=== PATIENT | male | born 1980 | race Caucasian/White ===

== ENCOUNTER 2017-10-20 13:38 | Emergency (ER) | payer SELFPAY ==
[2017-10-20 13:58] VITALS: BP 126/76
--- NOTE | 2017-10-20 14:26 | EDPHY ---
H & P Stated Complaint: ~0930 dropped wt 50lbs on foot right Time Seen by Provider: 10/20/17 13:55 HPI/ROS: Chief Complaint: Foot injury HPI: 37-year-old male was at work today when he dropped a box containing 50 lb weights onto his right foot. This happened about 4 hr ago. He has been walking since injury. Is complaining some pain on the top of his foot. No other injuries. ROS: 10 point Review of Systems is negative except as noted in the HPI. PMH: Denies Social History: No smoking, no alcohol, no recreational drug use Family History: non-contributory Physical Exam: General: Awake, alert, no acute distress Right foot: Patient has some tenderness on the dorsum of his midfoot. No bony deformity. No plantar tenderness. Sensations intact in all dermatomes. Capillary refills less than 3 sec. He has 2+ dorsalis pedis pulses. Ankle: Nontender, full range of motion without pain. Skin: No rash - Personal History Current Tetanus Diphtheria and Acellular Pertussis (TDAP): Yes - Medical/Surgical History Hx Asthma: No Hx Chronic Respiratory Disease: No Hx Diabetes: No Hx Cardiac Disease: No Hx Renal Disease: No Hx Cirrhosis: No Hx Alcoholism: No Hx HIV/AIDS: No Hx Splenectomy or Spleen Trauma: No Other PMH: denies - Social History Smoking Status: Former smoker Constitutional: Initial Vital Signs Heart Rate 71 10/20/17 13:54 Respiratory Rate 16 10/20/17 13:54 Blood Pressure 126/76 H 10/20/17 13:54 O2 Sat (%) 95 10/20/17 13:54 O2 Delivery Mode Room Air Allergies/Adverse Reactions: No Known Allergies Allergy (Unverified 10/20/17 13:54) Home Medications: Medication Instructions Recorded NK [No Known Home Meds] 10/20/17 Medical Decision Making - Diagnostics Imaging Results: Imaging Impressions Foot X-Ray 10/20/17 13:59 Impression: No acute osseous abnormality. ED Course/Re-evaluation: X-rays are negative. Patient has a contusion to the dorsum of his foot. Ibuprofen, ice, elevate, follow up with work comp. Departure - Departure Disposition: Home, Routine, Self-Care Clinical Impression: Foot contusion Condition: Good Instructions: Foot Contusion (ED), R.I.C.E. Treatment (ED) Additional Instructions: Apply ice for 15 min of every hour for the next 24 hr. Alternate acetaminophen (1000 mg) with ibuprofen (400 mg) every 4 hours as needed for pain. Follow up with workman's Comp in 4-5 days if symptoms are not improving. Referrals: Work Comp Referral [facility] [Outside] - As per Instructions
== END 2017-10-20 14:35 | disposition home or self-care (01) ==
LOC: CED 13:38
DX: S90.31XA Contusion of right foot, initial encounter (principal); Z87.891 Personal history of nicotine dependence; W20.8XXA Other cause of strike by thrown, projected or falling object, initial encounter; Y92.69 Other specified industrial and construction area as the place of occurrence of the external cause; Y99.0 Civilian activity done for income or pay; Y93.89 Activity, other specified
CPT/HCPCS: 73630-PO